=== PATIENT | female | born 1950 ===

== ENCOUNTER 2020-11-02 09:12 | Outpatient (REF) | payer OTHER, SELFPAY | END 2020-11-02 09:13 | disposition home or self-care (01) | LOC: HO.SCI 09:12 | DX: Z13.89 Encounter for screening for other disorder (principal) ==

== ENCOUNTER → 2020-11-26 19:01 | Outpatient (REF) | payer OTHER, SELFPAY | LOC: HO.SL 19:01 | PROVIDERS: PCP Internal Medicine; Visit Provider Internal Medicine Cardiovascular Disease | DX: G47.33 Obstructive sleep apnea (adult) (pediatric) (principal) | CPT/HCPCS: 95810 ==

== ENCOUNTER 2020-12-19 09:18 | Emergency (ER) | payer OTHER, SELFPAY ==
--- NOTE | ~2020-12-19 | XR_ITS ---
EXAMINATION: XR CHEST CLINICAL INFORMATION: Chest pain. COMPARISON: None TECHNIQUE: Frontal view of the chest was obtained. FINDINGS: The lungs are fairly well-expanded and clear. The heart size and pulmonary vascularity is normal. There is mild spondylosis dorsal spine. No lytic process. XR/XR chest 1V IMPRESSION: Unremarkable chest exam.
[2020-12-19 09:27] VITALS: BP 147/74; PULSE 88; RESP 18; TEMP 36.7; O2SAT 97; BMI 32.4
--- NOTE | 2020-12-19 09:35 | ECG_ITS ---
Test Reason : CHEST DISOMFORT Blood Pressure : / mmHG Vent. Rate : 070 BPM Atrial Rate : 070 BPM P-R Int : 154 ms QRS Dur : 080 ms QT Int : 382 ms P-R-T Axes : 026 -04 003 degrees QTc Int : 412 ms Normal sinus rhythm Voltage criteria for left ventricular hypertrophy Abnormal ECG No previous ECGs available Referred By: Viral Russo Electronically Signed By:SANDRITA MASTERS MD
--- NOTE | 2020-12-19 09:35 | ED.CHESTPAIN ---
HPI - Chest Pain General Chief Complaint: Chest Pain <Viral Russo NP - Last Filed: 12/19/20 13:17> Stated Complaint: high blood pressure <Viral Russo NP - Last Filed: 12/19/20 13:17> Time Seen by Provider: 12/19/20 09:23 <Viral Russo NP - Last Filed: 12/19/20 13:17> Source: patient <Viral Russo NP - Last Filed: 12/19/20 13:17> Mode of arrival: ambulatory <Viral Russo NP - Last Filed: 12/19/20 13:17> Limitations: language barrier (Primary Albanian-speaking requesting family to be her interpreter deaf as well as medical aide whom is present) <Viral Russo NP - Last Filed: 12/19/20 13:17> History of Present Illness HPI narrative: Pleasant 70-year-old female presenting ambulatory via triage with complaint of left-sided chest pain radiates to her back since yesterday but reports has had this for ?many years?. He states this episode started checked her blood pressure at home it was running ?high? (does not have readings) and limited concerned prompting the ED visit today. Very limited history from patient as well as family but she has medications stickers with her she looks like she is on atorvastatin and losartan and Plavix. They do admit to history of hypertension, hyperlipidemia but unsure why she is on Plavix states she recently relocated here about 1 year ago and she has been on this medication for some time now and for the same pain she has seen her primary care doctor at the [facility] has had extensive cardiac workup including in August she had a stress test, echo and seen a baffle mounter through [facility] and was told that her tests were ?negative?. She otherwise denies any shortness of breath with exertion she does report mild runny nose or past several days otherwise no abdominal pain, nausea, vomiting, lower extremity swelling. No headache or dizziness. <Viral Russo NP - Last Filed: 12/19/20 13:17> MD complaint: chest discomfort <Viral Russo NP - Last Filed: 12/19/20 13:17> Timing of current episode: episodic <Viral Russo NP - Last Filed: 12/19/20 13:17> Prior episodes: Yes <Viral Russo NP - Last Filed: 12/19/20 13:17> Pain location: left chest <Viral Russo NP - Last Filed: 12/19/20 13:17> Pain radiation: left arm <Viral Russo NP - Last Filed: 12/19/20 13:17> Severity: mild <Viral Russo NP - Last Filed: 12/19/20 13:17> Quality: aching <Viral Russo NP - Last Filed: 12/19/20 13:17> Relieving factors: rest <Viral Russo NP - Last Filed: 12/19/20 13:17> Exacerbating factors: palpation and movement <Viral Russo NP - Last Filed: 12/19/20 13:17> Treatment prior to arrival: none <Viral Russo NP - Last Filed: 12/19/20 13:17> Risk Factors Coronary artery disease risk factors: hyperlipidemia and hypertension <Viral Russo NP - Last Filed: 12/19/20 13:17> Related Data Home Medications: Home Medications Medication Instructions Recorded Confirmed clopidogrel [Plavix] See Rx Instructions .ROUTE .COMPLEX 12/19/20 12/19/20 <Viral Russo NP - Last Filed: 12/19/20 13:17> Allergies/Adverse Reactions: Allergies Allergy/AdvReac Type Severity Reaction Status Date / Time No Known Allergies Allergy Verified 12/19/20 09:31 <Viral Russo NP - Last Filed: 12/19/20 13:17> Review of Systems Review of Systems: Constitutional: No Weight loss, No Fever, No Chills, No Night Sweats, No Fatigue, No Malaise ENT/Mouth: No Hearing loss, No Ear Pain, No Nasal Congestion, No Sinus Pain, No Hoarseness, No sore throat, No Rhinorrhea, No Swallowing Difficulty Eyes: No Eye Pain, No Swelling, No Redness, No Foreign Body, No Discharge, No Vision Changes Cardiovascular: + Chest Pain, No SOB, No Dyspnea on Exertion, No Orthopnea, No Edema, No Palpitations Respiratory: No Cough, No Sputum, No Wheezing, No Dyspnea Gastrointestinal: No Nausea, No Vomiting, No Diarrhea, No Constipation, No abdominal Pain, No Hematochezia, No Melena Genitourinary: no irregular bleeding, No Dysuria, No Urinary Frequency, No Hematuria, No Urinary Incontinence, No Urgency, No Flank Pain, No Urinary Flow Changes, No Hesitancy Musculoskeletal: No joint pain, No Myalgias, No Joint Swelling Skin: No Skin Lesions, No rash Neuro: No Weakness, No Numbness, No Paresthesias, No Loss of Consciousness, No Dizziness, No Headache Psych: No Social Issues Heme/Lymph: No Bruising, No Bleeding,No Lymphadenopathy Endocrine: No Polyuria, No Polydipsia, No Temperature Intolerance <Viral Russo NP - Last Filed: 12/19/20 13:17> Yes all other systems are reviewed and are negative <Viral Russo NP - Last Filed: 12/19/20 13:17> [facility] Past Medical History Medical History: Medical History (Updated 12/20/20 @ 00:01 by Kobi Ghosh) High blood pressure Hyperlipidemia <Viral Russo NP - Last Filed: 12/19/20 13:17> Social History Social History: Social History Alcohol intake: never Smoking Status: Never smoker Advance Directives Date on File: 12/19/20 <Viral Russo NP - Last Filed: 12/19/20 13:17> Physical Exam Vital Signs: Vital Signs: Last Vital Signs Temp 98 F 12/19/20 13:24 Pulse 75 12/19/20 13:24 Resp 16 12/19/20 13:24 BP 134/68 12/19/20 13:24 Pulse Ox 95 12/19/20 13:24 Body Mass Index 32.4 Reviewed <Viral Russo NP - Last Filed: 12/19/20 13:17> Vital Signs: Last Vital Signs Temp 98 F 12/19/20 13:24 Pulse 75 12/19/20 13:24 Resp 16 12/19/20 13:24 BP 134/68 12/19/20 13:24 Pulse Ox 95 12/19/20 13:24 Body Mass Index 32.4 <Clifton Vicente MD - Last Filed: 01/01/21 09:28> Const: Other: Found pleasant 70-year-old female appearing slightly overweight and of stated age sitting up directed in stretcher pleasantly greeted me. She has daughter at bedside with her <Viral Russo HUNTING SALES ASSOCIATE - Last Filed: 12/19/20 13:17> General: cooperative; No acute distress or intoxicated appearing <[facility] CHRISTOPHER Russo - Last Filed: 12/19/20 13:17> Nutritional Appearance: average body habitus <[facility] Karan - Last Filed: 12/19/20 13:17> Orientation/consciousness: patient oriented x3 <[facility] Karan - Last Filed: 12/19/20 13:17> HENMT: Head: Yes normal to inspection <[facility] Karan - Last Filed: 12/19/20 13:17> Ears: hearing grossly normal bilaterally <[facility] Karan - Last Filed: 12/19/20 13:17> General nose exam: Normal external nose present <[facility] Karan HUNTING SALES ASSOCIATE - Last Filed: 12/19/20 13:17> Face and sinus: Yes normal facial exam <[facility] Karan - Last Filed: 12/19/20 13:17> Mouth: Normal oral and palatal mucosa present <[facility] Karan HUNTING SALES ASSOCIATE - Last Filed: 12/19/20 13:17> Teeth and gingiva: dentition normal <[facility] Karan - Last Filed: 12/19/20 13:17> Throat: Yes posterior oropharynx normal <[facility] Karan HUNTING SALES ASSOCIATE - Last Filed: 12/19/20 13:17> Eyes: General: appearance normal, both eyes and all related structures <[facility] Karan HUNTING SALES ASSOCIATE - Last Filed: 12/19/20 13:17> Visual Landin: normal visual landin by confrontation <[facility] Karan HUNTING SALES ASSOCIATE - Last Filed: 12/19/20 13:17> Neck: Neck: Yes normal visual inspection, No positive Brudzinski's sign, No positive Kernig's sign and No tender <[facility] CHRISTOPHER Russo - Last Filed: 12/19/20 13:17> Thyroid: Thyroid normal <[facility] Karan HUNTING SALES ASSOCIATE - Last Filed: 12/19/20 13:17> Chest: Chest palpation & inspection: normal inspection of the chest and tenderness (Her back with palpation) pectoral muscle on the left and costochondral junction left mid-clavicular line <[facility] CHRISTOPHER Russo - Last Filed: 12/19/20 13:17> Resp: Effort & Inspection: normal respiratory effort <[facility] Karan HUNTING SALES ASSOCIATE - Last Filed: 12/19/20 13:17> Auscultation: clear to auscultation bilaterally <[facility] Karan HUNTING SALES ASSOCIATE - Last Filed: 12/19/20 13:17> Cardio: Jugular venous distension: no JVD <[facility] Karan, HUNTING SALES ASSOCIATE - Last Filed: 12/19/20 13:17> Rate: regular rate <[facility] Russo, HUNTING SALES ASSOCIATE - Last Filed: 12/19/20 13:17> Rhythm: regular rhythm <[facility] Russo, HUNTING SALES ASSOCIATE - Last Filed: 12/19/20 13:17> Heart sounds: S1 normal heart sound present and S2 normal heart sound present <[facility] Russo, HUNTING SALES ASSOCIATE - Last Filed: 12/19/20 13:17> GI: Inspection: Yes normal to inspection <[facility] Karan HUNTING SALES ASSOCIATE - Last Filed: 12/19/20 13:17> Palpation (GI): Soft to palpation, Firmness to palpation present (GI) and no guarding <[facility] Russo HUNTING SALES ASSOCIATE - Last Filed: 12/19/20 13:17> Percussion: Yes normal to percussion <[facility] Russo HUNTING SALES ASSOCIATE - Last Filed: 12/19/20 13:17> Auscultation: normal bowel sounds <[facility] Karan HUNTING SALES ASSOCIATE - Last Filed: 12/19/20 13:17> : General: Yes no CVA tenderness <[facility] Russo HUNTING SALES ASSOCIATE - Last Filed: 12/19/20 13:17> Back/Spine/Pelvis: Back: no CVA tenderness <[facility] Russo HUNTING SALES ASSOCIATE - Last Filed: 12/19/20 13:17> Skin: General skin exam: no rashes or lesions noted <[facility] Russo HUNTING SALES ASSOCIATE - Last Filed: 12/19/20 13:17> Neuro: General: patient oriented x3 <[facility] Russo, HUNTING SALES ASSOCIATE - Last Filed: 12/19/20 13:17> Extrem: General: Yes normal to inspection <[facility] Russo HUNTING SALES ASSOCIATE - Last Filed: 12/19/20 13:17> Course Course Course Narrative: I have reviewed the chart <Clifton Vicente MD - Last Filed: 01/01/21 09:28> Reevaluation(s) Reevaluation #1: 0950 In review 70-year-old female with history of hypertension, hyperlipidemia and apparently some underlying cardiac issues she is on Plavix presenting with pain most consistent with musculoskeletal in etiology. Her blood pressure is within acceptable range at this time 147/74. Patient and daughter has consented to me obtaining records from the [facility] where she has had a workup for this in the past apparently. At this time given the findings will go ahead and check basic labs, EKG, chest x-ray and COVID test. <Viral Russo NP - Last Filed: 12/19/20 13:17> Reevaluation #2: 1300 Workup overall reassuring, negative troponin after 1 day of the symptoms seems more chronic and recurring. EKG nondiagnostic D-dimer negative. CMP without any significant electrolyte derangement, COVID negative. Feels better after Tylenol will try to avoid NSAIDs given that she is on Plavix. Will send home with lidocaine patch and warm compresses, Tylenol and outpatient follow-up. Both patient and family at bedside feels comfortable plan. Stable for discharge. <Viral Russo NP - Last Filed: 12/19/20 13:17> MDM - Chest Pain Differential Diagnosis Differential diagnosis: Likely atypical chest pain, costochondritis and chest pain; Unlikely fracture of rib, pneumothorax, stable angina, unstable angina pectoris, st elevation myocardial infarction and biliary colic <Viral Russo NP - Last Filed: 12/19/20 13:17> Medical Records Data Attestation: I reviewed the patient's medical records. <Viral Russo NP - Last Filed: 12/19/20 13:17> Medical records narrative: 0951 Medical records requested from the [facility] 1108 Records received from [facility] it is the note from primary care Dr. Munoz 12/19/2020 Additional history; CAD ?Patient gives a history of having an [place], vague details? Currently followed by cardiology Dr. Razo this was a tele visit No additional history noted from this note. Note signed and placed in patient's medical record <Viral Russo NP - Last Filed: 12/19/20 13:17> Lab Data Result diagrams: : 12/19/20 10:34 12/19/20 10:34 <Viral Russo HUNTING SALES ASSOCIATE - Last Filed: 12/19/20 13:17> Labs: Lab Results 12/19/20 12/19/20 12/19/20 Range/Units 10:34 10:34 10:34 WBC 7.0 (4.8-10.8) X10*3/uL RBC 4.30 (4.20-5.50) X10*6/uL Hgb 13.4 (12.0-16.0) g/dl Hct 40.0 (37-47) % MCV 93.0 (80-98) fL MCH 31.2 (27.0-33.0) pg MCHC 33.5 (31.0-35.0) g/dl RDW 12.2 (11.0-16.0) % Plt Count 247 (160-400) X10*3/uL MPV 9.8 (9.4-12.3) fL Immature Gran % (Auto) 0.3 (0.0-0.4) % Neut % (Auto) 60.0 (45-73) % Lymph % (Auto) 27.2 (20-40) % Mccone % (Auto) 8.4 (2-11) % Eos % (Auto) 3.7 (0-4) % Baso % (Auto) 0.4 (0-2) % Lymph # (Auto) 1.9 (1.2-4.9) X10*3/uL Mccone # (Auto) 0.6 (0.1-1.2) X10*3/uL Eos # (Auto) 0.3 (0.0-0.4) X10*3/uL Baso # (Auto) 0.0 (0.0-0.2) X10*3/uL Abs Immat Gran (auto) 0.02 (0.00-0.03) X10*3/uL Absolute Neuts (auto) 4.2 (2.0-8.3) X10*3/uL Absolute Nucleated RBC 0.000 (0.0-0.012) X10*3/uL Nucleated RBC % (auto) 0.0 (0.0-0.2) /100WBC PT 12.3 (10.8-13.0) SEC INR 1.0 (0.9-1.1) APTT 28.6 (24.1-38.0) SEC D-Dimer < 200 NG/ML Sodium 141 (135-145) mmol/L Potassium 4.1 (3.3-5.1) mmol/L Chloride 109 H (96-108) mmol/L Carbon Dioxide 26 (22-29) mmol/L Anion Gap 10 L (12-20) BUN 11 (9-16) mg/dL Creatinine 0.82 (0.5-1.4) mg/dL Estim Creat Clear Calc 71.6 Estimated GFR > 60 Random Glucose 116 H (60-115) mg/dL Calcium 8.9 (8.4-10.2) mg/dL Total Bilirubin 0.7 (0.0-1.0) mg/dL AST 13 (5-31) U/L ALT 10 (0-31) U/L Alkaline Phosphatase 52 (39-117) U/L Troponin I High Sens (<3.5-17.0) ng/L Total Protein 6.8 (6.5-8.0) g/dL Albumin 3.9 (3.5-5.0) g/dL COVID-19 (MAN) (Negative) COVID-19 Clin Com 12/19/20 12/19/20 Range/Units 10:34 10:34 WBC (4.8-10.8) X10*3/uL RBC (4.20-5.50) X10*6/uL Hgb (12.0-16.0) g/dl Hct (37-47) % MCV (80-98) fL MCH (27.0-33.0) pg MCHC (31.0-35.0) g/dl RDW (11.0-16.0) % Plt Count (160-400) X10*3/uL MPV (9.4-12.3) fL Immature Gran % (Auto) (0.0-0.4) % Neut % (Auto) (45-73) % Lymph % (Auto) (20-40) % Mccone % (Auto) (2-11) % Eos % (Auto) (0-4) % Baso % (Auto) (0-2) % Lymph # (Auto) (1.2-4.9) X10*3/uL Mccone # (Auto) (0.1-1.2) X10*3/uL Eos # (Auto) (0.0-0.4) X10*3/uL Baso # (Auto) (0.0-0.2) X10*3/uL Abs Immat Gran (auto) (0.00-0.03) X10*3/uL Absolute Neuts (auto) (2.0-8.3) X10*3/uL Absolute Nucleated RBC (0.0-0.012) X10*3/uL Nucleated RBC % (auto) (0.0-0.2) /100WBC PT (10.8-13.0) SEC INR (0.9-1.1) APTT (24.1-38.0) SEC D-Dimer NG/ML Sodium (135-145) mmol/L Potassium (3.3-5.1) mmol/L Chloride (96-108) mmol/L Carbon Dioxide (22-29) mmol/L Anion Gap (12-20) BUN (9-16) mg/dL Creatinine (0.5-1.4) mg/dL Estim Creat Clear Calc Estimated GFR Random Glucose (60-115) mg/dL Calcium (8.4-10.2) mg/dL Total Bilirubin (0.0-1.0) mg/dL AST (5-31) U/L ALT (0-31) U/L Alkaline Phosphatase (39-117) U/L Troponin I High Sens < 3.5 (<3.5-17.0) ng/L Total Protein (6.5-8.0) g/dL Albumin (3.5-5.0) g/dL COVID-19 (MAN) Negative (Negative) COVID-19 Clin Com See Note <Viral Russo HUNTING SALES ASSOCIATE - Last Filed: 12/19/20 13:17> Lab Results 12/19/20 12/19/20 12/19/20 Range/Units 10:34 10:34 10:34 WBC 7.0 (4.8-10.8) X10*3/uL RBC 4.30 (4.20-5.50) X10*6/uL Hgb 13.4 (12.0-16.0) g/dl Hct 40.0 (37-47) % MCV 93.0 (80-98) fL MCH 31.2 (27.0-33.0) pg MCHC 33.5 (31.0-35.0) g/dl RDW 12.2 (11.0-16.0) % Plt Count 247 (160-400) X10*3/uL MPV 9.8 (9.4-12.3) fL Immature Gran % (Auto) 0.3 (0.0-0.4) % Neut % (Auto) 60.0 (45-73) % Lymph % (Auto) 27.2 (20-40) % Mccone % (Auto) 8.4 (2-11) % Eos % (Auto) 3.7 (0-4) % Baso % (Auto) 0.4 (0-2) % Lymph # (Auto) 1.9 (1.2-4.9) X10*3/uL Mccone # (Auto) 0.6 (0.1-1.2) X10*3/uL Eos # (Auto) 0.3 (0.0-0.4) X10*3/uL Baso # (Auto) 0.0 (0.0-0.2) X10*3/uL Abs Immat Gran (auto) 0.02 (0.00-0.03) X10*3/uL Absolute Neuts (auto) 4.2 (2.0-8.3) X10*3/uL Absolute Nucleated RBC 0.000 (0.0-0.012) X10*3/uL Nucleated RBC % (auto) 0.0 (0.0-0.2) /100WBC PT 12.3 (10.8-13.0) SEC INR 1.0 (0.9-1.1) APTT 28.6 (24.1-38.0) SEC D-Dimer < 200 NG/ML Sodium 141 (135-145) mmol/L Potassium 4.1 (3.3-5.1) mmol/L Chloride 109 H (96-108) mmol/L Carbon Dioxide 26 (22-29) mmol/L Anion Gap 10 L (12-20) BUN 11 (9-16) mg/dL Creatinine 0.82 (0.5-1.4) mg/dL Estim Creat Clear Calc 71.6 Estimated GFR > 60 Random Glucose 116 H (60-115) mg/dL Calcium 8.9 (8.4-10.2) mg/dL Total Bilirubin 0.7 (0.0-1.0) mg/dL AST 13 (5-31) U/L ALT 10 (0-31) U/L Alkaline Phosphatase 52 (39-117) U/L Troponin I High Sens (<3.5-17.0) ng/L Total Protein 6.8 (6.5-8.0) g/dL Albumin 3.9 (3.5-5.0) g/dL COVID-19 (MAN) (Negative) COVID-19 Clin Com 12/19/20 12/19/20 Range/Units 10:34 10:34 WBC (4.8-10.8) X10*3/uL RBC (4.20-5.50) X10*6/uL Hgb (12.0-16.0) g/dl Hct (37-47) % MCV (80-98) fL MCH (27.0-33.0) pg MCHC (31.0-35.0) g/dl RDW (11.0-16.0) % Plt Count (160-400) X10*3/uL MPV (9.4-12.3) fL Immature Gran % (Auto) (0.0-0.4) % Neut % (Auto) (45-73) % Lymph % (Auto) (20-40) % Mccone % (Auto) (2-11) % Eos % (Auto) (0-4) % Baso % (Auto) (0-2) % Lymph # (Auto) (1.2-4.9) X10*3/uL Mccone # (Auto) (0.1-1.2) X10*3/uL Eos # (Auto) (0.0-0.4) X10*3/uL Baso # (Auto) (0.0-0.2) X10*3/uL Abs Immat Gran (auto) (0.00-0.03) X10*3/uL Absolute Neuts (auto) (2.0-8.3) X10*3/uL Absolute Nucleated RBC (0.0-0.012) X10*3/uL Nucleated RBC % (auto) (0.0-0.2) /100WBC PT (10.8-13.0) SEC INR (0.9-1.1) APTT (24.1-38.0) SEC D-Dimer NG/ML Sodium (135-145) mmol/L Potassium (3.3-5.1) mmol/L Chloride (96-108) mmol/L Carbon Dioxide (22-29) mmol/L Anion Gap (12-20) BUN (9-16) mg/dL Creatinine (0.5-1.4) mg/dL Estim Creat Clear Calc Estimated GFR Random Glucose (60-115) mg/dL Calcium (8.4-10.2) mg/dL Total Bilirubin (0.0-1.0) mg/dL AST (5-31) U/L ALT (0-31) U/L Alkaline Phosphatase (39-117) U/L Troponin I High Sens < 3.5 (<3.5-17.0) ng/L Total Protein (6.5-8.0) g/dL Albumin (3.5-5.0) g/dL COVID-19 (MAN) Negative (Negative) COVID-19 Clin Com See Note <Clifton Vicente MD - Last Filed: 01/01/21 09:28> Imaging Data Chest x-ray: Radiologist's impression: [address] [id number] ReportSigned Patient: Cade GuidoMR#: [id number]: [id number]:[id number]/Sex: 70 / FADM Date: 12/19/20Loc: [address] Dr: Ordering Physician: Viral Russo NP Date of Service: 12/19/20 Procedure(s): XR chest 1V Accession Number(s): [id number] cc: Viral Russo HUNTING SALES ASSOCIATE~ EXAMINATION: XR CHEST CLINICAL INFORMATION: Chest pain. COMPARISON: None TECHNIQUE: Frontal view of the chest was obtained. FINDINGS: The lungs are fairly well-expanded and clear. The heart size and pulmonary vascularity is normal. There is mild spondylosis dorsal spine. No lytic process. XR/XR chest 1V IMPRESSION: Unremarkable chest exam. Dictated By:KEVAN CHILD MDSigned By:<Electronically signed by KEVAN CHILD MD in OV>12/19/20 1003 DD/ 0935TD/TT: Field Representative: SOLOMON <Viral Russo NP - Last Filed: 12/19/20 13:17> ECG Data ECG #1: Interpretation: Normal sinus rhythm Rate 70 Voltage criteria for left ventricular hypertrophy Abnormal ECG No previous ECGs available <Viral Russo NP - Last Filed: 12/19/20 13:17> Discharge Plan Discharge Clinical Impression: Atypical chest pain, Costalchondritis <Viral Russo NP - Last Filed: 12/19/20 13:17> Patient Disposition: Home, Self-Care <Viral Russo NP - Last Filed: 12/19/20 13:17> Instructions: Chest Pain (ED), Costochondritis (ED) <Viral Russo NP - Last Filed: 12/19/20 13:17> Additional Instructions: Your blood work was overall reassuring specifically your blood work for heart, x-ray of her chest. The pain that you are having is consistent with muscle irritation/ inflammation Warm compresses, Tylenol for pain discomfort You can apply lidocaine patch Return if any concerns or worsening symptoms Follow-up her primary care doctor as discussed Thank you <Viral Russo NP - Last Filed: 12/19/20 13:17> Prescriptions: No Action clopidogrel [Plavix] 75 mg Tablet See Rx Instructions .ROUTE .COMPLEX RF: 0 <Viral Russo NP - Last Filed: 12/19/20 13:17> Referrals: Armando Pa MD [Primary Care Provider] - 3 days <Viral Russo NP - Last Filed: 12/19/20 13:17> Stand Alone Forms: Work/School Release <Viral Russo NP - Last Filed: 12/19/20 13:17> Interventions: ED Discharge Assessment Last Done: 12/19/20 13:30 <Viral Russo NP - Last Filed: 12/19/20 13:17> Discharge Date/Time: 12/19/20 13:32 <Viral Russo NP - Last Filed: 12/19/20 13:17>
[2020-12-19 10:51] LABS: MANUAL DIFF FLAG NO
[2020-12-19 10:58] LABS: Basophils Percent Auto 0.4 % (0-2); Eosinophils Absolute Auto 0.3 X10*3/uL (0.0-0.4); Eosinophils Percent Auto 3.7 % (0-4); Hemoglobin 13.4 g/dl (12.0-16.0); Imm Gran Abs Auto 0.02 X10*3/uL (0.00-0.03); Imm Gran Pct Auto 0.3 % (0.0-0.4); Lymphocytes Absolute Auto 1.9 X10*3/uL (1.2-4.9); Lymphocytes Percent Auto 27.2 % (20-40); Mean Corpuscular HGB Conc 33.5 g/dl (31.0-35.0); Mean Corpuscular Hemoglobin 31.2 pg (27.0-33.0); Mean Platelet Volume 9.8 fL (9.4-12.3); Monocytes Absolute Auto 0.6 X10*3/uL (0.1-1.2); Monocytes Percent Auto 8.4 % (2-11); Neutrophils Absolute Auto 4.2 X10*3/uL (2.0-8.3); Platelet Count 247 X10*3/uL (160-400); Red Cell Distribution Width 12.2 % (11.0-16.0)
[2020-12-19 11:03] LABS: Prothrombin Time 12.3 SEC (10.8-13.0)
[2020-12-19 11:05] LABS: Partial Thromboplastin Time 28.6 SEC (24.1-38.0)
[2020-12-19 11:27] LABS: Alanine Aminotransferase 10 U/L (0-31); Albumin Level 3.9 g/dL (3.5-5.0); Alkaline Phosphatase 52 U/L (39-117); Anion Gap 10 (12-20); Aspartate Amino Transferase 13 U/L (5-31); Bilirubin Total 0.7 mg/dL (0.0-1.0); Blood Urea Nitrogen 11 mg/dL (9-16); Calcium 8.9 mg/dL (8.4-10.2); Carbon Dioxide 26 mmol/L (22-29); Chloride 109 mmol/L (96-108); Creatinine Clr Calc Pharmacy 71.6; Estimated Glomerular Filt Rate > 60; Glucose Random 116 mg/dL (60-115); Potassium 4.1 mmol/L (3.3-5.1); Sodium 141 mmol/L (135-145); Total Protein 6.8 g/dL (6.5-8.0)
[2020-12-19 11:28] LABS: D Dimer < 200 NG/ML
[2020-12-19 11:30] LABS: Troponin-I High Sensitivity < 3.5 ng/L (<3.5-17.0)
[2020-12-19 11:36] LABS: COVID-19 Test Negative (Negative)
[2020-12-19] MEDS: Acetaminophen 325 MG TABLET 975 MG PO (13:23)
[2020-12-19 13:24] VITALS: BP 134/68; PULSE 75; RESP 16; TEMP 36.6; O2SAT 95
== END 2020-12-19 13:32 | disposition home or self-care (01) ==
PROVIDERS: Nurse Practitioner Primary Care; Emergency Provider Emergency Medicine; PCP Internal Medicine
DX: R07.89 Other chest pain (principal); M94.0 Chondrocostal junction syndrome [Tietze]; M79.602 Pain in left arm; Z20.822 Contact with and (suspected) exposure to COVID-19; Z79.899 Other long term (current) drug therapy
CPT/HCPCS: 36415; 71045; 80053; 84484; 85025; 85379; 85610; 85730; 87635; 93005; 99285